=== PATIENT | female | born 1990 | race Caucasian/White ===

== ENCOUNTER 2018-06-19 12:13 | Emergency (ER) | payer BC, MEDICAID | END 2018-06-19 14:05 | disposition home or self-care (01) | LOC: FTE 12:13 | DX: M65.4 Radial styloid tenosynovitis [de Quervain] (principal) | CPT/HCPCS: 29125; 99283-25 ==

== ENCOUNTER 2018-09-23 11:04 | Emergency (ER) | payer BC ==
[2018-09-23] MEDS: DEXAMETHASONE 10 MG/ML 1 ML INJ IM (12:47)
[2018-09-23] MEDS: KETOROLAC 60 MG INJ IM (12:48)
== END 2018-09-23 13:51 | disposition home or self-care (01) ==
LOC: FTE 11:04
DX: M25.531 Pain in right wrist (principal); Z87.39 Personal history of other diseases of the musculoskeletal system and connective tissue
CPT/HCPCS: 81025; 96372; 99284-25